=== PATIENT | female | born 1945 | race Two or more races ===

== ENCOUNTER 2022-04-01 11:23 | Outpatient (REF) | payer MEDICARE, SELFPAY ==
--- NOTE | 2022-04-01 | PFT_ITS ---
Forced vital capacity 95%, FEV1 114%, FEV1/FVC ratio is 89, FEF 25-75 187% and MVV 98%. No significant response to bronchodilator therapy. Total lung capacity 86%, residual volume 73%, and diffusion capacity is 72%. CONCLUSION: Normal pulmonary function test. No evidence of obstructive or restrictive pulmonary disorder. MD MELIZA Painting/ALONZO / [id number]
== END 2022-04-01 11:24 | disposition home or self-care (01) ==
LOC: HO.RESP 11:23
PROVIDERS: PCP Internal Medicine; Visit Provider Internal Medicine Cardiovascular Disease
DX: R06.00 Dyspnea, unspecified (principal)
CPT/HCPCS: 94060; 94727; 94729